=== PATIENT | male | born 1945 | race Caucasian/White ===

== ENCOUNTER 2017-11-22 23:07 | Emergency (ER) | payer OTHER, MEDICARE ==
[2017-11-23] MEDS: dexameTHASONE 20 MG/5 ML VIAL (J1100) IV (00:18)
[2017-11-23] MEDS: ALBUTEROL SULFATE 2.5 MG/0.5 ML INH NEB SOLN NEB (00:28)
== END 2017-11-23 01:58 | disposition home or self-care (01) ==
LOC: M ED 23:07
DX: J20.9 Acute bronchitis, unspecified (principal); I10 Essential (primary) hypertension; J44.0 Chronic obstructive pulmonary disease with (acute) lower respiratory infection; K21.9 Gastro-esophageal reflux disease without esophagitis; Z79.899 Other long term (current) drug therapy; Z87.891 Personal history of nicotine dependence
CPT/HCPCS: J1100

== ENCOUNTER → 2022-06-21 | Outpatient (CLI) | payer OTHER ==
[~2022-06-21] MED LIST: AERO1MIS XX; ALBU1.25 INH; AMLO1TAB25 PO; LISI5TAB11 PO; OMEP1CAP73 PO; PRED20TA PO
== END ==
LOC: M RAD 08:35
DX: R74.01 Elevation of levels of liver transaminase levels (principal); K76.0 Fatty (change of) liver, not elsewhere classified

== ENCOUNTER 2022-08-28 01:56 | Emergency (ER) | payer OTHER ==
[~2022-08-28] VITALS: Ht 162.6 cm; Wt 69.5 kg
[2022-08-28 04:53] LABS: BASO % 0.3 % (0.0-1.0); EOS # 0.1 10^3/uL (0.0-0.5); EOS % 1.1 % (0.0-3.0); HEMATOCRIT 41.4 % (42.0-52.0); HEMOGLOBIN 13.7 g/dl (13.5-17.5); LYMPH # 0.8 10^3/uL (1.5-5.0); LYMPH % 8.2 % (24.0-44.0); MEAN CORPUSCULAR HEMOGLOBIN 29.1 pg (27.0-33.0); MEAN CORPUSCULAR HGB CONC 33.1 g/dl (32.0-36.5); MEAN CORPUSCULAR VOLUME 87.9 fl (80.0-96.0); MONO # 0.7 10^3/uL (0.0-0.8); MONO % 6.7 % (2.0-8.0); NEUTROPHILS # 8.2 10^3/uL (1.5-8.5); NEUTROPHILS % 83.3 % (36.0-66.0); PLATELET COUNT, AUTOMATED 321 10^3/uL (150-450); RED BLOOD COUNT 4.71 10^6/uL (4.30-6.10); WHITE BLOOD COUNT 9.8 10^3/uL (4.0-10.0)
[2022-08-28 05:14] LABS: LIPASE 28 U/L (12-53)
[2022-08-28 05:22] LABS: RSV AMPLIFICATION NEGATIVE (NEGATIVE)
[2022-08-28 06:50] LABS: ALBUMIN 3.8 G/DL (3.2-5.2); ALKALINE PHOSPHATASE 58 U/L (46-116); ALT/SGPT 47 U/L (7.0-40); AST/SGOT 33 U/L (<34); BILIRUBIN,TOTAL 0.4 MG/DL (0.3-1.2); BLOOD UREA NITROGEN 15 MG/DL (9-23); CALCIUM LEVEL 9.3 MG/DL (8.3-10.6); CARBON DIOXIDE LEVEL 26 MMOL/L (20-31); CHLORIDE LEVEL 99 MMOL/L (98-107); CREATININE FOR GFR 0.95 MG/DL (0.70-1.30); GLOMERULAR FILTRATION RATE > 60.0 (>42); GLUCOSE, FASTING 170 MG/DL (74-106); MAGNESIUM LEVEL 1.8 MG/DL (1.8-2.4); POTASSIUM SERUM 4.7 MMOL/L (3.5-5.1); SODIUM LEVEL 133 MMOL/L (136-145)
[2022-08-28] MEDS ORDERED: NS 1,000 ML IV ONE (07:05)
[2022-08-28] MEDS ORDERED: ISOVUE-370 76% 100ML VIAL As Ordered ONE (07:34)
[2022-08-28 09:08] LABS: AMPHETAMINES LEVEL URINE NEGATIVE (NEGATIVE); BARBITURATES URINE NEGATIVE (NEGATIVE); BENZODIAZEPINES URINE NEGATIVE (NEGATIVE); COCAINE METABOLITE URINE NEGATIVE (NEGATIVE); METHADONE URINE NEGATIVE (NEGATIVE); OPIATES URINE NEGATIVE (NEGATIVE); PHENCYCLIDINE URINE NEGATIVE (NEGATIVE)
[2022-08-28 09:09] LABS: CANNABINOIDS URINE POSITIVE (NEGATIVE)
[2022-08-28 09:10] LABS: CK-MB VALUE MASS 7.5 NG/ML (<3.6)
[2022-08-28 09:12] LABS: MB/CK RELATIVE INDEX 4.16 (< OR =4)
[2022-08-28 10:27] LABS: CK-MB VALUE MASS 6.1 NG/ML (<3.6); CPK CREATINE PHOSPHOKINASE 166 U/L (46-171); ETHYL ALCOHOL (ETHANOL) 0.004 % (0.000-0.010); FREE T4 1.24 NG/DL (0.89-1.76); MB/CK RELATIVE INDEX 3.67 (< OR =4); THYROID STIMULATING HORMONE 0.923 uIU/ML (0.55-4.78)
[2022-08-28 11:08] LABS: CK-MB VALUE MASS 9.4 NG/ML (<3.6)
[2022-08-28 11:10] LABS: MB/CK RELATIVE INDEX 4.43 (< OR =4)
[2022-08-28] MEDS ORDERED: hydroCHLOROthiazide 12.5 MG CAPSULE PO ONE (12:30)
[2022-08-28] MEDS ORDERED: amLODIPine 5 MG TAB PO ONE (12:30)
[2022-08-28] MEDS ORDERED: DOXY100C81 PO (12:41)
[2022-08-28] MEDS ORDERED: AMOX875T2 PO (12:41)
[2022-08-28 12:59] VITALS: BP 180/77
== END 2022-08-28 13:10 | disposition home or self-care (01) ==
LOC: M ED 01:56
DX: A08.4 Viral intestinal infection, unspecified (principal); B34.8 Other viral infections of unspecified site; J18.9 Pneumonia, unspecified organism; K76.0 Fatty (change of) liver, not elsewhere classified; K57.30 Diverticulosis of large intestine without perforation or abscess without bleeding; Z79.899 Other long term (current) drug therapy
CPT/HCPCS: 70450; 71045; 71275; 74177; 80053; 80307; 81001; 82077; 82550; 82553; 83690; 83735; 84439; 84443; 84484; 85025; 87486; 87581; 87631; 87633; 87798; 93005; 96360; 96361; 99285; Q9967

== ENCOUNTER 2024-03-29 15:36 | Emergency (ER) | payer OTHER ==
[~2024-03-29 15:36] MED LIST changes: +AMOX875T2 PO; +DOXY100C82 PO
[2024-03-29] MEDS: NS 1,000 ML IV ONE (16:37)
[2024-03-29] MEDS: ONDANSETRON 4MG 2ML VIAL IV ONE (16:37)
[2024-03-29 16:44] LABS: BASO % 0.5 % (0.0-1.0); EOS # 0.2 10^3/uL (0.0-0.5); EOS % 3.2 % (0.0-3.0); HEMATOCRIT 41.3 % (42.0-52.0); HEMOGLOBIN 14.4 g/dl (13.5-17.5); LYMPH # 1.4 10^3/uL (1.5-5.0); LYMPH % 18.2 % (24.0-44.0); MEAN CORPUSCULAR HEMOGLOBIN 30.1 pg (27.0-33.0); MEAN CORPUSCULAR HGB CONC 34.9 g/dl (32.0-36.5); MEAN CORPUSCULAR VOLUME 86.4 fl (80.0-96.0); MONO # 0.6 10^3/uL (0.0-0.8); MONO % 7.7 % (2.0-8.0); NEUTROPHILS # 5.3 10^3/uL (1.5-8.5); PLATELET COUNT, AUTOMATED 272 10^3/uL (150-450); RED BLOOD COUNT 4.78 10^6/uL (4.30-6.10); WHITE BLOOD COUNT 7.5 10^3/uL (4.0-10.0)
[2024-03-29 17:06] LABS: LIPASE 33 U/L (12-53)
[2024-03-29 17:08] LABS: ALBUMIN 4.1 G/DL (3.2-5.2); ALKALINE PHOSPHATASE 59 U/L (46-116); ALT/SGPT 45 U/L (7.0-40); AST/SGOT 29 U/L (<34); BILIRUBIN,DIRECT 0.2 MG/DL (<0.4); BILIRUBIN,TOTAL 0.5 MG/DL (0.3-1.2); BLOOD UREA NITROGEN 17 MG/DL (9-23); CALCIUM LEVEL 9.2 MG/DL (8.3-10.6); CARBON DIOXIDE LEVEL 25 MMOL/L (20-31); CHLORIDE LEVEL 104 MMOL/L (98-107); CPK CREATINE PHOSPHOKINASE 184 U/L (46-171); CREATININE FOR GFR 0.98 MG/DL (0.70-1.30); GLOMERULAR FILTRATION RATE > 60.0 (>42); GLUCOSE, FASTING 150 MG/DL (74-106); POTASSIUM SERUM 3.4 MMOL/L (3.5-5.1); SODIUM LEVEL 137 MMOL/L (136-145)
[2024-03-29 17:11] LABS: CK-MB VALUE MASS 3.7 NG/ML (<3.6); MB/CK RELATIVE INDEX 2.01 (< OR =4)
[2024-03-29] MEDS ORDERED: ISOVUE-370 76% 100ML VIAL As Ordered ONE (19:09)
[2024-03-29] MEDS: PROMETHAZINE 25MG/ML 1ML VIAL IV ONE (19:31)
[2024-03-29] MEDS ORDERED: ONDA-282 PO (20:31)
[2024-03-29 20:43] VITALS: BP 173/72
[2024-03-29] MEDS: amLODIPine 5 MG TAB PO ONE (20:43)
[2024-03-29] MEDS: ONDANSETRON 4MG ORAL DISINTEGRATING TAB PO ONE (21:03)
[2024-03-29 21:31] VITALS: BP 150/67; TEMP 97.7; O2SAT 96
== END 2024-03-29 21:35 | disposition home or self-care (01) ==
LOC: EDBD 15:36 → M ED 15:36
DX: R11.2 Nausea with vomiting, unspecified (principal); I25.2 Old myocardial infarction; I10 Essential (primary) hypertension; K21.9 Gastro-esophageal reflux disease without esophagitis; J44.9 Chronic obstructive pulmonary disease, unspecified; F17.210 Nicotine dependence, cigarettes, uncomplicated; Z79.51 Long term (current) use of inhaled steroids; Z79.2 Long term (current) use of antibiotics; Z79.52 Long term (current) use of systemic steroids; Z79.899 Other long term (current) drug therapy
CPT/HCPCS: 70450; 71045; 71275; 72125; 74177; 80048; 80076; 82550; 82553; 83605; 83690; 84484; 85025; 87486; 87581; 87633; 87798; 93005; 93041; 96361; 96374; 96375; 99285; J2405; J2550; Q9967